=== PATIENT | female | born 1945 ===

== ENCOUNTER 2018-11-07 08:31 | Day surgery (SDC) | payer MEDICARE, MEDICAID ==
[2018-10-19 10:57] VITALS: BMI 35.6
[2018-11-07] MEDS ORDERED: Bupivacaine 0.5% 50 ML IJ ONE ×2 (09:31→10:00)
[2018-11-07] MEDS ORDERED: Propofol 10 mg/ml Inj (20 ML) ONE (09:32)
[2018-11-07] MEDS ORDERED: Midazolam 2 MG/2 ML VIAL ONE (09:32)
--- NOTE | 2018-11-07 10:47 | PCM.SURG1 ---
Surgeon's Initial Post Op Note - Surgeon's Notes Surgeon: Dr. Zhang Control Tower Operator: Dr. Braxton PGY3 Type of Anesthesia: IV Sedation Pre-Operative Diagnosis: left intrgluteal lipoma Operative Findings: same Post-Operative Diagnosis: same Operation Performed: excision of left intragluteal lipoma Specimen/Specimens Removed: lipoma Estimated Blood Loss: EBL {In ML}: 5 Blood Products Given: N/A Drains Used: No Drains Post-Op Condition: Good Date of Surgery/Procedure: 11/07/18 Time of Surgery/Procedure: 10:46
[2018-11-07] MEDS ORDERED: HYDROmorphone 0.5 mg/0.5 ml ISec IVP PRN ×2 (10:56→10:57)
[2018-11-07] MEDS ORDERED: Lactated Ringer's 1,000 ML IV SCH (11:00)
[2018-11-07 11:48] VITALS: RESP 18; TEMP 97.3
[2018-11-07 12:35] VITALS: PULSE 82; O2SAT 96
[2018-11-07 12:57] VITALS: BP 121/72
--- NOTE | 2018-11-08 08:23 | OP ---
PROCEDURE DATE: 11/07/2018 SURGEON: Juan Brooks MD. STOCK CLERK SELF SERVICE STORE: Vinay Braxton DO, PGY-3. TYPE OF ANESTHESIA USED: IV sedation. PREOPERATIVE DIAGNOSIS: Left intragluteal mass. POSTOPERATIVE DIAGNOSIS: Left intragluteal mass. OPERATIVE FINDINGS: Left intragluteal mass measuring approximately 5 x 8 cm. OPERATION PERFORMED: Excision of left intragluteal intramuscular mass. SPECIMENS: Lipoma. ESTIMATED BLOOD LOSS: 5 mL. PROCEDURE: After correctly identifying the patient's age, name, and date of , the patient was placed in the operating room table in a right recumbent position. IV sedation was induced for anesthesia. Preoperative antibiotics were given. The area was prepped and draped in the usual sterile fashion. Prior to making incision over the left gluteal region, 0.5% Marcaine was used to anesthetize the region where we will make our incision. A #15-blade was used to make an incision along the left medial gluteal region. Incision was approximately 5 cm long. Blunt dissection was used to carry down to the fat and Jneny's fascia mostly reached the muscular fascia. We used electrocautery to dissect down towards the gluteal muscles. Once down to the gluteal muscles, we bluntly dissected, and the muscles until we came across the mass which was protruding out in between the muscles. After localizing the mass, we bluntly dissected circumferentially around it down to its pedicle. Once the pedicle of the mass was exposed, we used electrocautery to remove it. The mass was removed from the patient and sent off for pathology. Afterwards, great care was taken to make sure hemostasis was achieved. There was no active bleeding noted. The area was thoroughly irrigated with normal saline. Afterwards, 3-0 Vicryl was used to approximate the deep fascia as well as Jenny's fascia and the deep dermal layer. After that, 4-0 Monocryl was used in a running manner to approximate the skin and Dermabond was applied over the skin incision site. At the end of the procedure, all counts were correct. The patient tolerated the procedure well and was transferred to PACU in stable condition. Vinay Braxton DO Juan Brooks MD [facility] # [id number]
== END 2018-11-07 13:50 | disposition home or self-care (01) ==
LOC: SDS 08:31
PROVIDERS: ATTEND General Practice
DX: D17.1 Benign lipomatous neoplasm of skin and subcutaneous tissue of trunk (principal); I10 Essential (primary) hypertension; E11.9 Type 2 diabetes mellitus without complications; Z79.84 Long term (current) use of oral hypoglycemic drugs
CPT/HCPCS: 21933; 88307; J0690; J1170; J2001; J2250; J2405; J2704; J3010; J7120 ×2

== ENCOUNTER 2018-11-21 08:36 | Day surgery (SDC) | payer MEDICARE, MEDICAID ==
[2018-10-19 10:57] VITALS: BMI 35.6
[2018-11-21 09:30] LABS: BASO # 0.03 K/mm3 (0.0-2.0); BASO % 0.7 % (0.0-3.0); EOS # 0.2 (0.0-0.7); EOS % 3.5 % (1.5-5.0); HEMOGLOBIN 13.7 g/dL (12.0-16.0); LYMPH # 1.2 (1.2-3.4); LYMPH % 25.4 % (22.0-35.0); MEAN CORPUSCULAR HEMOGLOBIN 30.3 pg (25.0-35.0); MEAN CORPUSCULAR HGB CONC 32.9 g/dl (31.0-37.0); MEAN PLATELET VOLUME 10.6 fl (7.0-11.0); MONO # 0.4 (0.1-0.6); MONO % 8.1 % (1.0-6.0); RBC 4.52 10^6/uL (3.5-6.1); RED CELL DISTRIBUTION WIDTH 14.1 % (11.5-14.5); WHITE BLOOD COUNT 4.6 10^3/uL (4.5-11.0)
[2018-11-21 09:38] LABS: CALCIUM 10.1 mg/dL (8.4-10.5); INR 1.04; PARTIAL THROMBOPLASTIN TIME 37.3 Seconds (26.9-38.3); PROTHROMBIN TIME 11.8 SECONDS (9.4-12.5)
[2018-11-21] MEDS ORDERED: Bupivacaine 0.5% 50 ML IJ ONE (09:48)
[2018-11-21] MEDS ORDERED: Lidocaine 1% Inj (20ml) ONE (09:48)
[2018-11-21] MEDS ORDERED: Propofol 10 mg/ml Inj (20 ML) ONE ×2 (09:49→09:50)
[2018-11-21] MEDS ORDERED: HYDROmorphone 0.5 mg/0.5 ml ISec IVP PRN (10:50)
--- NOTE | 2018-11-21 10:54 | PCM.SURG1 ---
Surgeon's Initial Post Op Note - Surgeon's Notes Surgeon: Dr Brooks Rn Allergy: Joann Oswald, PGY-2 Type of Anesthesia: IV Sedation Anesthesia Administered By: Dr. 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
--- NOTE | 2018-11-21 10:58 | PCM.OP ---
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 Pt was consented for the same. All risks and benefits were discussed with patient prior to surgical intervention. All questions were answered. Patient was prepped and draped in the usual sterile fashion. A time out was performed identifying patient, procedure and laterality. Anesthesia was infiltrated and previous scar was excised. Hemostasis was achieved with electrocautery. The port was removed. A figure of 8 suture was applied to internal jugular vessel and the catheter portion of the port was removed without bleeding. The capsule was circumferential dissected and excised. The previous port pocket was inspected for hemostasis- there was no bleeding noted. Deep dermal sutures using 2-0 Vicryl were used to approximate the incision site. The skin was closed using 4-0 Moncryl in a running subcuticular fashion. Surgical glue was applied and a pressure dressing placed after the glue dried. All sut ures, sponges and instruments were declared to be correct at the end of the procedure. The patient was taken to the post anesthesia care unit in stable condition. Procedure/Operation Description: Removal of Left IJ portcath Estimated Blood Loss: 1cc Blood Replaced: Not indicated Sponge/Instrument Count: Declared to be correct at end of procedure Drains: None Complications: None Specimen: Left IJ portacath Discharge & Condition: Home when meets criteria <Juan Brooks - Last Filed: 11/22/18 23:52> Operative Report - Operative Report Operative Findings: Correction:A [id number] suture was applied not to the internal jugular vessel as dictated but to the tract around the catheter which was tunneled under the skin from the chest wall towards the neck and into the internal jugular vein.
[2018-11-21] MEDS ORDERED: Lactated Ringer's 1,000 ML IV SCH (11:00)
[2018-11-21 11:53] VITALS: RESP 18; TEMP 97.5
[2018-11-21 12:57] VITALS: BP 143/60; PULSE 58; O2SAT 98
== END 2018-11-21 13:00 | disposition home or self-care (01) ==
LOC: SDS 08:36
PROVIDERS: ATTEND General Practice
DX: T82.594A Other mechanical complication of infusion catheter, initial encounter (principal); C15.9 Malignant neoplasm of esophagus, unspecified; Y84.8 Other medical procedures as the cause of abnormal reaction of the patient, or of later complication, without mention of misadventure at the time of the procedure; E11.9 Type 2 diabetes mellitus without complications; I10 Essential (primary) hypertension
CPT/HCPCS: 36415; 36590; 80048; 85025; 85610; 85730; 88300; J0690; J1170; J2405; J2704; J2765; J3010; J7120 ×2